=== PATIENT | female | born 1940 | race Hispanic/Latino ===

== ENCOUNTER → 2022-11-29 | Outpatient (CLI) | payer MEDICARE | LOC: RAD 14:53 | PROVIDERS: ATTEND Internal Medicine | DX: I10 Essential (primary) hypertension (principal) | CPT/HCPCS: 71046 ==

== ENCOUNTER → 2022-12-03 | Outpatient (CLI) | payer MEDICARE | LOC: MAMMO 13:36 | PROVIDERS: ATTEND Internal Medicine | DX: Z12.31 Encounter for screening mammogram for malignant neoplasm of breast (principal); M81.0 Age-related osteoporosis without current pathological fracture; I10 Essential (primary) hypertension | CPT/HCPCS: 71046; 77067; 77080 ==